=== PATIENT | female | born 1965 | race Two or more races ===

== ENCOUNTER → 2021-10-27 | Outpatient (CLI) | payer OTHER ==
--- NOTE | 2021-10-27 13:18 | RAD ---
Site ID: [id number] EXAMINATION: XR KNEE_LT 1-2 VIEWS. HISTORY: 56 years Female Reason: LEFT KNEE PAIN. / COMPARISON: None. FINDINGS: No fracture, dislocation or radiopaque foreign body. Advanced degenerative changes with prominent marginal osteophytes in the 3 compartments and the significant joint space narrowing is seen in the m edial and lateral compartment. In the lateral compartment there is also remodeling of the articular s urface which could also be contributed the 2 by a previous injury. IMPRESSION: Advanced degenerative changes. Electronically signed by: Mane Sheldon MD (10/27/2021 1:15 PM) [id number]
== END ==
LOC: RAD 09:55
PROVIDERS: ATTEND Anesthesiology Pain Medicine
DX: Z02.71 Encounter for disability determination (principal); M17.12 Unilateral primary osteoarthritis, left knee; M25.762 Osteophyte, left knee
CPT/HCPCS: 73560